=== PATIENT | female | born 1950 | race American Indian/Alaskan Native ===

== ENCOUNTER 2018-07-25 15:46 | Outpatient (CLI) | payer MEDICARE | END 2018-07-25 15:47 | disposition home or self-care (01) | LOC: C.MAMMO 15:46 | DX: Z12.31 Encounter for screening mammogram for malignant neoplasm of breast (principal) ==

== ENCOUNTER 2018-08-01 11:37 | Outpatient (CLI) | payer MEDICARE | END 2018-08-01 11:38 | disposition home or self-care (01) | LOC: C.DEXAIC 11:38 | DX: M81.0 Age-related osteoporosis without current pathological fracture (principal) ==